=== PATIENT | male | born 1955 ===

== ENCOUNTER 2025-02-19 05:51 | Day surgery (SDC) | payer MEDICARE, SELFPAY ==
[2025-02-19] VITALS (9 sets, daily range): BP systolic 126–146; BP diastolic 70–93; BMI 27.2
[2025-02-19] MEDS: NSS 258 ML IV (07:11)
--- NOTE | 2025-02-19 08:22 | ITS.CL.PN ---
[employer] - Procedure Note
Procedure
Procedure Note:
CARDIAC CATHETERIZATION REPORT
Date of Procedure: 02/19/2025
Referring: Robbi Painter DO
Indication: atypical chest pain, positive cardiac stress test
PROCEDURE(S)
1. left heart catheterization
2. coronary angiography
ACCESS: 6F right radial artery (closure: radial band)
CATHETERS
1. 6F JR4 (note: for future catheterizations, recommend catheter with longer secondary bend)
2. 6F JL4
MODERATE SEDATION: 25 minutes of moderate sedation was utilized. [facility] was present to assist with and help manage the patient's level of consciousness and physiologic status.
HEMODYNAMIC DATA
LV 125/10 (EDP 19) mmHg
AO 136/66 (mean 95) mmHg
CORONARY ANGIOGRAPHY
Dominance: right
LM: large vessel with 40% smooth distal tapering
LAD: large vessel giving rise to two moderate caliber diagonal branches. There is a moderate length, up to 60% stenosis in the mid-distal LAD (after the second diagonal) and a focal 50% stenosis in the true distal vessel. There is also diffuse mild
disease throughout the vessel. The first diagonal has long segment moderate disease leading extending from the ostium distally leading into a focal 80% stenosis. The second diagonal is sub-totally occluded and appears to fill via both an antegrade
microchannels and faint L-L collaterals.
LCx: moderate caliber vessel giving rise to a moderate caliber branching OM1 and small LPL branch. There is diffuse mild disease.
RCA: large vessel giving rise to a moderate caliber RPDA, and and two large RPL branches. There is a focal 40% stenosis in the mid-distal vessel and otherwise diffuse mild disease.
RADIATION: dose 514 mGy; DAP 41 Gy*cm2; fluoroscopy time 6.4 min
CONCLUSIONS
1. Mildly elevated LV filling pressure and no aortic stenosis.
2. Single vessel obstructive CAD involving both diagonal branches and the mid-distal LAD.
RECOMMENDATIONS
1. Aggressive secondary prevention of coronary artery disease with daily ASA 81 and high intensity statin.
2. Current chest pain symptoms are unlikely to be anginal. Should patient develop angina symptoms in the future despite optimal medical therapy, would be reasonable to consider PCI of the mid-distal LAD.
Copy to: Robbi Painter MD (inspector rough castings); Edgar Rubio DO (PCP)
Signed: Bentley Mo MD, PhD
== END 2025-02-19 11:05 | disposition home or self-care (01) ==
LOC: CATH 05:51
PROVIDERS: ATTENDING PHYSICIAN Student in an Organized Health Care Education/Training Program; FAMILY PHYSICIAN Family Medicine; REFERRING PHYSICIAN Student in an Organized Health Care Education/Training Program
DX: I25.10 Atherosclerotic heart disease of native coronary artery without angina pectoris (principal); Z79.899 Other long term (current) drug therapy
CPT/HCPCS: 99152; 99153; 93458; C1769; C1894; Q9967